=== PATIENT | male | born 1990 ===

== ENCOUNTER 2024-05-31 20:10 | Emergency (ER) | payer SELFPAY ==
[~2024-05-31] VITALS: Ht 182.9 cm; Wt 90.7 kg
== END 2024-05-31 20:40 | disposition home or self-care (01) ==
LOC: ER 20:10
DX: S06.0XAA Concussion with loss of consciousness status unknown, initial encounter (principal); S00.33XA Contusion of nose, initial encounter; S00.81XA Abrasion of other part of head, initial encounter; W01.0XXA Fall on same level from slipping, tripping and stumbling without subsequent striking against object, initial encounter; Z88.0 Allergy status to penicillin
CPT/HCPCS: 99282